=== PATIENT | male | born 1950 | race Caucasian/White ===

== ENCOUNTER → 2016-09-06 | Outpatient (CLI) | payer MEDICARE, OTHER | END | disposition home or self-care (01) | LOC: RAD.S 07:24 → PTH.S 07:30 | DX: C85.95 Non-Hodgkin lymphoma, unspecified, lymph nodes of inguinal region and lower limb (principal); I10 Essential (primary) hypertension; E27.8 Other specified disorders of adrenal gland; M47.892 Other spondylosis, cervical region ==